=== PATIENT | male | born 1975 | race Caucasian/White ===

== ENCOUNTER 2024-05-12 01:01 | Outpatient (CLI) | payer OTHER, SELFPAY ==
--- NOTE | 2024-05-12 09:00 | ETT_ITS ---
APPROVED REPORT Exam: Exercise Treadmill Patient Location: Out-Patient Room/Bed: Stress Nurse: Mireya Bynum RN; Chelsea Edwards RN Ordering Provider:OLIVERIO TERRY, Contact Number: [phone] BMI: 32.26 Baseline Rhythm: Sinus Bradycardia Indications: chest pain Medical History Medical History: HTN, HLD, anxiety, BEAN Cardiac Medications: lisinopril-hydrochlorothiazide, paroxetine, fluticasone Allergies: sulfamethoxazole-trimethoprim Cardiac Risk Factors: family history, HTN, HLD Previous Cardiac Procedures: none Pretest Chest Pain Characteristics: No chest pain Exercise History: Physically active Physical Disabilities: none Lung Sounds: Clear to auscultation Heart Sounds: Regular Stress Test Details Test: Exercise stress testing was performed using a Ryan protocol. Rest Stress HR Resting HR Supine: 58 bpm Max Heart Rate (APMHR): 173 bpm Resting HR Standin bpm Target HR (85% APMHR): 147 bpm Max HR Achieved: 156 bpm % of APMHR: 90 Recovery HR: 79 bpm HR response to stress: Normal HR response to stress BP Resting BP Supine: 122/82 mmHg Resting BP Standin/84 mmHg Max BP: 142/76 mmHg Recovery BP: 122/76 mmHg BP response to stress: Normal blood pressure response to stress. ECG Resting ECG: Sinus Bradycardia Ectopy: none Stress ECG: Sinus Tachycardia ST Change: No significant ST segment changes noted Arrhythmia: None Recovery ECG: Sinus Rhythm Recovery ST Change: No significant ST segment changes noted Recovery Arrhythmia: None Clinical Reason for Termination: Target HR Achieved Stress Symptoms: Leg Fatigue Exercise duration: 10 min20 sec Highest Stage Reached: Stage 4: 4.2 mph at 16% grade. Exercise capacity: 12.35 METs Angina Score: None Aguero Treadmill Score: 9.6 Rate Pressure Product: [id number] Stress ECG Conclusion 1. Resting electrocardiogram was normal 2. Patient exercised on the Ryan protocol and from pleated a workload of 12.35 METS 3. Normal heart rate and blood pressure response to exercise. The patient achieved 90% of predicted heart rate for age 4. There was no electrocardiographic evidence of myocardial ischemia 5. There were no significant dysrhythmias Aguero Treadmill Score is 9.6 which is Low risk. Stress Test Summary STAGE Time (mins) Speed (mph) Grade (%) HR BP SpO2 SYMPTOMS METS Supine 58 122/82 95 Standing 61 118/84 1 3 1.7 10 97 120/70 96 4.5 2 6 2.5 12 112 138/78 7 3 9 3.4 14 124 140/70 10 4 12 4.2 16 156 13 1 min recovery 118 136/68 3 min recovery 80 142/76 97 6 min recovery 79 122/76
== END 2024-05-12 01:21 ==
PROVIDERS: PCP Hospitalist; Visit Provider Nurse Practitioner Family
DX: I10 Essential (primary) hypertension (principal); E78.2 Mixed hyperlipidemia; E66.3 Overweight; R07.9 Chest pain, unspecified
CPT/HCPCS: 93016; 93018; 93017